=== PATIENT | female | born 1945 | race Native Hawaiian/Other Pacific Islander ===

== ENCOUNTER 2018-05-21 10:55 | Day surgery (SDC) | payer OTHER, MEDICARE ==
[2018-05-21 11:45] LABS: POTASSIUM 4.2 mmol/L (3.6-5.2)
== END 2018-05-21 12:50 | disposition home or self-care (01) ==
LOC: OR 10:55
PROVIDERS: Internal Medicine Gastroenterology
PROC: 0DB68ZZ Excision of Stomach, Via Natural or Artificial Opening Endoscopic (ICD-10-PCS; principal; 2018-05-21)
PROC: 0D758ZZ Dilation of Esophagus, Via Natural or Artificial Opening Endoscopic (ICD-10-PCS; 2018-05-21)
DX: K22.2 Esophageal obstruction (principal); K21.0 Gastro-esophageal reflux disease with esophagitis; K44.9 Diaphragmatic hernia without obstruction or gangrene; K29.50 Unspecified chronic gastritis without bleeding; K29.80 Duodenitis without bleeding; R13.19 Other dysphagia; R10.13 Epigastric pain; R07.89 Other chest pain
CPT/HCPCS: 80053; J2001; J2704

== ENCOUNTER 2018-12-23 07:52 | Outpatient (CLI) | payer OTHER, MEDICARE ==
[2018-12-23 08:24] LABS: POTASSIUM 4.1 mmol/L (3.6-5.2)
== END 2018-12-23 19:13 | disposition home or self-care (01) ==
LOC: LABW 07:52
PROVIDERS: Internal Medicine Cardiovascular Disease
DX: Z79.899 Other long term (current) drug therapy (principal); R06.09 Other forms of dyspnea
CPT/HCPCS: 36415; 80048; 83880

== ENCOUNTER 2020-08-17 12:36 | Outpatient (CLI) | payer OTHER, MEDICARE | END 2020-08-17 21:52 | disposition home or self-care (01) | LOC: LABW 12:36 | PROVIDERS: ATTEND Internal Medicine Gastroenterology | DX: K64.0 First degree hemorrhoids (principal) | CPT/HCPCS: 82272 ==

== ENCOUNTER 2021-06-05 15:36 | Outpatient (CLI) | payer OTHER, MEDICARE | END 2021-06-05 21:52 | disposition home or self-care (01) | LOC: RAD 15:36 | PROVIDERS: ATTEND Internal Medicine | DX: R05.9 Cough, unspecified (principal); R09.81 Nasal congestion; R06.2 Wheezing ==

== ENCOUNTER 2021-08-03 16:34 | Outpatient (CLI) | payer OTHER, MEDICARE | END 2021-08-03 19:16 | disposition home or self-care (01) | LOC: LABW 16:34 | PROVIDERS: ATTEND Internal Medicine Gastroenterology | DX: K64.0 First degree hemorrhoids (principal) | CPT/HCPCS: 82272 ==

== ENCOUNTER 2022-03-15 12:50 | Outpatient (CLI) | payer OTHER, MEDICARE | END 2022-03-15 19:26 | disposition home or self-care (01) | LOC: US 12:50 | PROVIDERS: ATTEND Physician Assistant | DX: R09.89 Other specified symptoms and signs involving the circulatory and respiratory systems (principal) ==

== ENCOUNTER → 2022-06-27 | Outpatient (CLI) | payer OTHER, MEDICARE | LOC: RAD 15:35 | PROVIDERS: ATTEND Internal Medicine | DX: M79.641 Pain in right hand (principal); R60.0 Localized edema ==